=== PATIENT | male | born 1990 | race African-American/Black ===

== ENCOUNTER 2017-05-06 07:48 | Day surgery (SDC) | payer OTHER ==
[~2017-05-06 07:48] MED LIST: Acetaminophen TAB* 325 MG PO ONE; Buffered Lidocaine 0.9% SYRIN* 5 ML/SYR SYRINGE INTRADERM ONE; Dexamethasone IV* 4 MG/ML 1 ML (4 MG) IV SLOW PU ONE; Famotidine IV* 10 MG/ML 2 ML (20 mg) IV ONE
[2017-05-06] MEDS ORDERED: Dexamethasone IV* 4 MG/ML 1 ML (4 MG) ONE (07:53)
[2017-05-06] MEDS ORDERED: Famotidine IV* 10 MG/ML 2 ML (20 mg) ONE (07:54)
[2017-05-06] MEDS ORDERED: Acetaminophen TAB* 325 MG ONE (07:57)
[2017-05-06] MEDS ORDERED: ceFAZolin 2 GM PREMIX (*) 50 ML IVPB ONE (08:02)
[2017-05-06] MEDS ORDERED: Ketorolac INJ* 30 MG/ML 1 ML VIAL ONE ×2 (09:12→10:34)
[2017-05-06] MEDS ORDERED: Ondansetron INJ* 2 MG/ML VIAL ONE ×2 (09:12→10:34)
[2017-05-06] MEDS ORDERED: fentaNYL* 50 MCG/ML 2 ML VIAL (100 MCG VIAL) ONE ×3 (09:12→12:39)
[2017-05-06] MEDS ORDERED: Lidocaine 2% PF * 5 ML VIAL ONE (09:12)
[2017-05-06] MEDS ORDERED: Propofol* 10 MG/ML 20 ML BTL IV PUSH ONE (09:12)
[2017-05-06] MEDS ORDERED: Midazolam* 1 MG/ML 2 ML VIAL (2 MG) ONE (09:12)
[2017-05-06] MEDS ORDERED: Bupivacaine 0.25% SDV* 30 ML ONE (09:40)
[2017-05-06] MEDS ORDERED: Levalbuterol 0.63MG/3ML NEB* UNIT OF USE INH ONE (09:50)
[2017-05-06] MEDS ORDERED: Ondansetron INJ* 2 MG/ML VIAL IV PRN (11:14)
[2017-05-06] MEDS ORDERED: fentaNYL* 50 MCG/ML 2 ML VIAL (100 MCG VIAL) IV PRN (11:14)
[2017-05-06] MEDS ORDERED: DiMENhydriNATE IV* 50 MG/ML VIAL IV PUSH PRN (11:14)
[2017-05-06] MEDS ORDERED: HYDROmorphone INJ* 1 MG/ML CARPUJECT SYRINGE IV PRN (11:14)
[2017-05-06] MEDS ORDERED: Levalbuterol 0.63MG/3ML NEB* UNIT OF USE INH PRN (11:14)
[2017-05-06] MEDS ORDERED: oxyCODONE TAB* 5 MG TAB PO PRN (11:14)
[2017-05-06] MEDS ORDERED: diPHENhydraMINE IV* 50 MG/ML 1 ml VIAL (BENADRYL) IV PRN (11:14)
[2017-05-06] MEDS ORDERED: HYDROmorphone INJ* 1 MG/ML CARPUJECT SYRINGE ONE (11:24)
[2017-05-06 14:19] VITALS: BP 164/91
--- NOTE | 2017-05-06 15:53 | RAD ---
INDICATION: Left wrist scaphoid bone fracture operative reduction and internal fixation. COMPARISON: There are no prior studies available for comparison. TECHNIQUE: 1 minute and 50 seconds of intermittent fluoroscopic guidance were provided and 10 spot films of the left wrist were obtained in the operating room. FINDINGS: The films demonstrate operative reduction and internal fixation of a fracture of the scaphoid bone. There is a single surgical screw spanning the fracture fragments. There is a defect in the distal radial metaphysis which appears to be a harvest site for bone graft material. IMPRESSION: INTRAOPERATIVE CONTROL FILMS. CPT II Codes: 6045F
--- NOTE | 2017-05-07 16:02 | OP ---
OPERATIVE REPORT: DATE OF OPERATION: 05/06/17 - ANDREE DATE OF : 88 SURGEON: Rojas Lozano MD CONSTRUCTION STONEMASON: RAMON Perales An radiology physician assistant was needed for the entirety of the procedure to assist with positioning of the arm and retraction. ANESTHESIOLOGIST: Dr. Godinez. ANESTHESIA: General. PRE-OP DIAGNOSIS: Left scaphoid nonunion with humpback deformity. POST-OP DIAGNOSIS: Left scaphoid nonunion with humpback deformity. OPERATIVE PROCEDURE: Open repair of left scaphoid nonunion with autologous dorsal radius volar cortical cancellous bone grafting and internal fixation. INDICATIONS: Alexa is a 26-year-old inmate. He has a left proximal third scaphoid waist nonunion with humpback deformity. I had talked to him about his treatment options. The fragments look vascularized on the x-rays. He wants to proceed with nonunion repair. We talked about risks and benefits including the risk of not healing the nonunion and requiring subsequent surgery. ESTIMATED BLOOD LOSS: 5 mL. COMPLICATIONS: None. FINDINGS: As expected. Both the proximal and distal fragments look like they had some punctate bleeding and were vascularized. DESCRIPTION OF PROCEDURE: Alexa was seen in the preoperative holding area. The correct side, site and procedure were identified. We came back to the operating room where anesthesia was induced and the arm was prepped and draped in the usual fashion. A time-out was performed. I began by making an incision obliquely over the access to the scaphoid down towards the base of the first metacarpal at the wrist flexion crease. I extended this proximally in line with the FCR tendon for about 5 or 6 cm. Dissection was carried down the FCR sheath. This was opened. The tendon was retracted ulnarly. The subsheath was divided. The dissection was carried down and the palmar carpal branch was identified and cauterized. The volar extrinsic ligaments were identified and the radioscaphocapitate ligament was incised to expose the scaphoid nonunion. Subperiosteal flaps were raised taking care to preserve the dorsoradial soft tissue on the distal fragment. The nonunion site was encountered. There was karina gross motion there. I went ahead and placed a 0.0045 K-wire in the distal pole and one in the proximal pole. The nonunion site was gapped open. The nonunion site was debrided with a curette and a rongeur. I then took a small shae and created a trough in the proximal and distal fragments centrally. A small opening in the volar cortex was created with a shae to receive the cortical cancellous graft at a later stage. Once I had the nonunion site completely debrided, I checked for vascularity, it did look like there was some nice punctate bleeding both proximally and distally. At this point, I turned my attention to obtain my bone graft. I went ahead and released the pronator quadratus off the radial margin. This was reflected subperiosteally. I used a small drill bit to outline the site for my graft harvest. I then used an osteotome to complete the osteotomy. A piece of cortical cancellous graft was raised. This was 2 cm x 7 to 8 mm in length and width respectively. I then brought this up and handed off. I then took the curette and retrieved quite a bit of more cancellous graft from the site. Once I had retrieved enough graft, I turned my attention back to the scaphoid. I went ahead and contoured my cortical cancellous graft and then placed this into the trough I had created in the proximal and distal fragments. This was done after I used the K-wires to reduce the 2 fragments and to bring the distal fragment out of flexion and pronation. Once I had placed the cortical cancellous strut graft, this held open the nonunion quite nicely. I checked my mini C-arm fluoroscopic images and the alignment looked very nice. I went ahead and placed my guidewire for my mini Acutrak screw. I had to excise a little bit of the volar rim of the trapezium in order to get the nice center- center position of the wire. Once I had this in place, I placed a second 0.0045 K-wire out of the trajectory of the screw to hold the reduction and to give me some counter rotation. I measured the screw, I over drilled the wire, I did the proximal drill as well. I selected a 26 mm screw. This was placed in a standard fashion. This was a mini Acumed Acutrak screw. This has had excellent bite and provided excellent compression across the nonunion. The scaphoid was now very solid and moving in one piece. I removed my derotational and provisional K-wire. I took all my cancellous graft and packed it around the nonunion site using the tamp and a freer elevator to really get this in solidly. I then checked final fluoroscopic imaging, everything looked very nice. The alignment was very nice. The DISI deformity had been corrected. The wound was then gently irrigated. The radioscaphocapitate ligament was repaired with 3-0 Ethibond suture. The pronator quadratus was reapproximated with 3-0 Polysorb suture covering the bone graft harvest site. I then irrigated out the wound and the skin was closed with 3-0 Monocryl suture and Steri-Strips. The operative site was infiltrated with 0.25% plain Marcaine. The wound was dressed with 4x4, sterile Webril, and a thumb spica splint. Tourniquet was deflated. The hand pinked up immediately. I had exsanguinated the arm with the Esmarch and inflated the tourniquet to 250 mmHg prior to making skin incision. Total tourniquet time was just over 2 hours. He was then woken up and taken to recovery room in stable condition. [id number]/[facility] #: [id number] ELIZABETH
== END 2017-05-06 14:20 | disposition home or self-care (01) ==
LOC: OREAST 07:48
PROVIDERS: ATTEND Orthopaedic Surgery Hand Surgery
DX: S62.002K Unspecified fracture of navicular [scaphoid] bone of left wrist, subsequent encounter for fracture with nonunion (principal); F17.210 Nicotine dependence, cigarettes, uncomplicated; X58.XXXD Exposure to other specified factors, subsequent encounter; Y92.9 Unspecified place or not applicable
CPT/HCPCS: 76000; A9270-GY; C1713; C1776; J0690; J1100; J1170; J1885; J2250; J2405; J2704; J3010; J7615